=== PATIENT | male | born 1955 | race Caucasian/White ===

== ENCOUNTER 2018-06-25 12:08 | Inpatient (IN) | payer OTHER ==
[2018-06-25 12:32] LABS: ADD MAN DIFF? NO
[2018-06-25 12:34] LABS: WHITE BLOOD COUNT 7.3 10^3/ul (4.8-10.8)
[2018-06-25 12:34] LABS: BASOPHIL # 0.1 10^3/ul (0.0-0.1); BASOPHILS % 0.7 % (0.0-2.0); EOSINOPHILS # 0.2 10^3/ul (0.0-0.5); EOSINOPHILS % 2.1 % (0.0-7.0); HEMATOCRIT 38.8 % (42.0-52.0); HEMOGLOBIN 13.3 g/dl (14.0-18.0); LYMPHOCYTES # 3.1 10^3/ul (0.8-2.9); LYMPHOCYTES % 41.9 % (15.0-51.0); MEAN CORPUSCULAR HEMOGLOBIN 29.6 pg (29.0-33.0); MEAN CORPUSCULAR HGB CONC 34.3 g/dl (32.0-37.0); MEAN CORPUSCULAR VOLUME 86.4 fl (82.0-101.0); MEAN PLATELET VOLUME 10.7 fl (7.4-10.4); MONOCYTE # 0.3 10^3/ul (0.3-0.9); MONOCYTES % 4.7 % (0.0-11.0); NEUTROPHIL # 3.7 10^3/ul (1.6-7.5); NEUTROPHILS % 50.3 % (39.0-77.0); PLATELET COUNT 226 10^3/UL (140-415); RED BLOOD COUNT 4.49 10^6/ul (4.70-6.10); RED CELL DISTRIBUTION WIDTH 13.9 % (11.5-14.5)
[2018-06-25] MEDS: ASPIRIN 81 MG TAB PO (12:45)
[2018-06-25 12:50] LABS: ANION GAP 10 (8-16); BLOOD UREA NITROGEN 21 mg/dl (7-20); CALCIUM 8.8 mg/dl (8.4-10.2); CARBON DIOXIDE 29 mmol/L (21-31); CHLORIDE 105 mmol/L (97-110); CREATININE 0.93 mg/dl (0.61-1.24); GLUCOSE 99 mg/dl (70-220); POTASSIUM 3.5 mmol/L (3.5-5.1); SODIUM 140 mmol/L (135-144)
[2018-06-25 13:01] LABS: TROPONIN-I < 0.012 ng/ml (0.000-0.120)
[2018-06-25] MEDS ORDERED: ACETAMINOPHEN 325 MG TAB PO (14:30)
[2018-06-25] MEDS ORDERED: ONDANSETRON 4 MG INJ IV (14:30)
[2018-06-25] MEDS ORDERED: NITROGLYCERIN (SL) 0.4 MG TAB SL (15:00)
[2018-06-25] MEDS ORDERED: hydrALAzine 20 MG INJ IV (15:00)
[2018-06-25 19:19] LABS: CREATINE KINASE 46 IU/L (23-200)
[2018-06-25 19:30] LABS: CK INDEX 1.4; CK-MB 0.66 ng/ml (0.0-2.4); TROPONIN-I < 0.012 ng/ml (0.000-0.120)
[2018-06-25] MEDS: TAMSULOSIN (SR) 0.4 MG CAP PO (22:06)
[2018-06-25] MEDS: ATORVASTATIN 20 MG TAB PO (22:06)
[2018-06-25] MEDS: ISOSORBIDE DINITRATE 20 MG TAB PO (22:07)
[2018-06-26 00:55] LABS: CREATINE KINASE 44 IU/L (23-200)
[2018-06-26 01:08] LABS: CK INDEX 1.3; CK-MB 0.59 ng/ml (0.0-2.4); TROPONIN-I < 0.012 ng/ml (0.000-0.120)
[2018-06-26 06:37] LABS: CHOL/HDL RATIO 3.6 RATIO; HDL CHOLESTEROL 38 mg/dl (30-78); LDL CHOLESTEROL,CALCULATED 75 mg/dl; TRIGLYCERIDES 127 mg/dl (0-149)
[2018-06-26 06:37] LABS: CHOLESTEROL 138 mg/dl (100-200)
[2018-06-26 06:49] LABS: TROPONIN-I < 0.012 ng/ml (0.000-0.120)
[2018-06-26] MEDS: ASPIRIN 81 MG TAB PO (08:06)
[2018-06-26] MEDS: DUTASTERIDE 0.5 MG CAP PO (08:06)
[2018-06-26] MEDS: AMLODIPINE 5 MG TAB PO (08:08)
[2018-06-26] MEDS: LOSARTAN 50 MG TAB PO (08:09)
[2018-06-26] MEDS: ISOSORBIDE DINITRATE 20 MG TAB PO ×3 (08:09→20:46)
[2018-06-26] MEDS: FISH OIL 1,000 MG CAP PO (08:09)
[2018-06-26] MEDS: ENOXAPARIN 40 MG/0.4 ML SYG SC (09:57)
[2018-06-26] MEDS: POTASSIUM CHLORIDE (SR) 20 MEQ TAB PO (15:13)
[2018-06-26] MEDS: TAMSULOSIN (SR) 0.4 MG CAP PO (20:46)
[2018-06-26] MEDS: ATORVASTATIN 20 MG TAB PO (20:46)
[2018-06-27] MEDS: FISH OIL 1,000 MG CAP PO (08:43)
[2018-06-27] MEDS: ISOSORBIDE DINITRATE 20 MG TAB PO ×3 (08:44→20:25)
[2018-06-27] MEDS: LOSARTAN 50 MG TAB PO (08:44)
[2018-06-27] MEDS: AMLODIPINE 5 MG TAB PO (08:44)
[2018-06-27] MEDS: ASPIRIN 81 MG TAB PO (08:44)
[2018-06-27] MEDS: DUTASTERIDE 0.5 MG CAP PO (08:45)
[2018-06-27] MEDS: ENOXAPARIN 40 MG/0.4 ML SYG SC (09:59)
[2018-06-27] MEDS: TAMSULOSIN (SR) 0.4 MG CAP PO (20:23)
[2018-06-27] MEDS: ATORVASTATIN 20 MG TAB PO (20:23)
[2018-06-28] MEDS: ASPIRIN 81 MG TAB PO (08:53)
[2018-06-28] MEDS: FISH OIL 1,000 MG CAP PO (08:53)
[2018-06-28] MEDS: ISOSORBIDE DINITRATE 20 MG TAB PO ×2 (08:55→13:30)
[2018-06-28] MEDS: LOSARTAN 50 MG TAB PO (08:55)
[2018-06-28] MEDS: AMLODIPINE 5 MG TAB PO (08:56)
[2018-06-28] MEDS: DUTASTERIDE 0.5 MG CAP PO (08:57)
[2018-06-28] MEDS: ENOXAPARIN 40 MG/0.4 ML SYG SC (08:59)
== END 2018-06-28 13:44 | disposition home or self-care (01) | DRG 313 ==
LOC: E/R 12:08 → 6WM 14:27
DX: R07.9 Chest pain, unspecified (principal); E78.5 Hyperlipidemia, unspecified; I25.119 Atherosclerotic heart disease of native coronary artery with unspecified angina pectoris; I10 Essential (primary) hypertension; I49.3 Ventricular premature depolarization; N40.0 Benign prostatic hyperplasia without lower urinary tract symptoms; Z79.82 Long term (current) use of aspirin; Z87.891 Personal history of nicotine dependence; Z95.1 Presence of aortocoronary bypass graft
CPT/HCPCS: 36415; 71045; 80048; 80061; 82550; 82553; 84484; 85025; 93005; 93306; 99285-25

== ENCOUNTER 2018-09-03 07:16 | Day surgery (SDC) | payer OTHER ==
[2018-09-03 08:31] LABS: ADD MAN DIFF? NO
[2018-09-03 08:33] LABS: BASOPHIL # 0.1 10^3/ul (0.0-0.1); BASOPHILS % 0.7 % (0.0-2.0); EOSINOPHILS # 0.1 10^3/ul (0.0-0.5); EOSINOPHILS % 1.8 % (0.0-7.0); HEMOGLOBIN 13.8 g/dl (14.0-18.0); LYMPHOCYTES # 3.2 10^3/ul (0.8-2.9); LYMPHOCYTES % 46.9 % (15.0-51.0); MEAN CORPUSCULAR HEMOGLOBIN 29.5 pg (29.0-33.0); MEAN CORPUSCULAR HGB CONC 34.5 g/dl (32.0-37.0); MEAN CORPUSCULAR VOLUME 85.5 fl (82.0-101.0); MEAN PLATELET VOLUME 10.8 fl (7.4-10.4); MONOCYTE # 0.3 10^3/ul (0.3-0.9); MONOCYTES % 4.2 % (0.0-11.0); NEUTROPHIL # 3.2 10^3/ul (1.6-7.5); NEUTROPHILS % 46.1 % (39.0-77.0); PLATELET COUNT 236 10^3/UL (140-415); RED BLOOD COUNT 4.68 10^6/ul (4.70-6.10); RED CELL DISTRIBUTION WIDTH 13.3 % (11.5-14.5)
[2018-09-03 08:33] LABS: WHITE BLOOD COUNT 6.8 10^3/ul (4.8-10.8)
[2018-09-03 08:52] LABS: INR 1.09; PROTIME 14.2 Sec (11.9-14.9); PT RATIO 1.1
[2018-09-03 08:53] LABS: PARTIAL THROMBOPLASTIN TIME 32.9 Sec (23.0-35.0)
[2018-09-03 08:59] LABS: ANION GAP 10 (5-13); BLOOD UREA NITROGEN 18 mg/dl (7-20); CALCIUM 9.1 mg/dl (8.4-10.2); CARBON DIOXIDE 29 mmol/L (21-31); CHLORIDE 103 mmol/L (97-110); CHOL/HDL RATIO 3.6 RATIO; CHOLESTEROL 143 mg/dl (100-200); CREATININE 0.86 mg/dl (0.61-1.24); Estimated GFR > 60 mL/min (>60); GLUCOSE 101 mg/dl (70-220); HDL CHOLESTEROL 39 mg/dl (30-78); LDL CHOLESTEROL,CALCULATED 90 mg/dl; SODIUM 142 mmol/L (135-144); TRIGLYCERIDES 70 mg/dl (0-149)
[2018-09-03 09:04] LABS: POTASSIUM 3.2 mmol/L (3.5-5.1)
[2018-09-03] MEDS ORDERED: LIDOCAINE 2% (MDV) 20 ML INJ (09:15)
[2018-09-03] MEDS ORDERED: IODIXANOL LOCM 100 ML BTL ×4 (09:15→10:52)
[2018-09-03] MEDS ORDERED: FENTAnyl 50 MCG/ML VIAL (09:16)
[2018-09-03] MEDS ORDERED: MIDAZOLAM 1 MG/ML 2 ML INJ (09:16)
[2018-09-03] MEDS ORDERED: SOD CHLORIDE 0.9% 500 ML (10:17)
[2018-09-03] MEDS ORDERED: BIVALIRUDIN 250MG /NS 50 ML 50 ML IVPB (10:36)
[2018-09-03] MEDS ORDERED: NITROGLYCERIN (IC) 100 MCG/ML INJ (10:37)
[2018-09-03] MEDS ORDERED: IOHEXOL 350MG/ML 50 ML BTL (10:52)
[2018-09-03] MEDS ORDERED: TICAGRELOR 90 MG TABLET (11:08)
[2018-09-03] MEDS ORDERED: ASPIRIN 325 MG TAB (11:08)
[2018-09-03] MEDS ORDERED: DIPHENHYDRAMINE 50 MG INJ (11:26)
[2018-09-03] MEDS ORDERED: ONDANSETRON 4 MG INJ IV (11:30)
[2018-09-03] MEDS ORDERED: morphine 2 MG INJ IV (11:30)
[2018-09-03] MEDS ORDERED: AL HYDROX/MG HYDROX/SIMETH 30 ML CUP PO (11:30)
[2018-09-03] MEDS ORDERED: OXYCODONE/ACETAMINOPHEN (5/325) TAB PO (11:30)
[2018-09-03] MEDS ORDERED: ZOLPIDEM 5 MG TAB PO (11:30)
[2018-09-03] MEDS ORDERED: ACETAMINOPHEN 325 MG TAB PO (11:30)
[2018-09-03] MEDS: POTASSIUM CHLORIDE (SR) 20 MEQ TAB PO (12:00)
[2018-09-03] MEDS ORDERED: DIPHENHYDRAMINE 25 MG CAP PO (12:00)
[2018-09-03] MEDS: SOD CHLORIDE 0.9% 1,000 ML IV (12:09)
[2018-09-03] MEDS: TICAGRELOR 90 MG TABLET PO (21:47)
[2018-09-04 07:08] LABS: ADD MAN DIFF? NO
[2018-09-04 07:20] LABS: WHITE BLOOD COUNT 11.4 10^3/ul (4.8-10.8)
[2018-09-04 07:21] LABS: BASOPHILS % 0.3 % (0.0-2.0); EOSINOPHILS # 0.1 10^3/ul (0.0-0.5); EOSINOPHILS % 1.2 % (0.0-7.0); HEMATOCRIT 37.4 % (42.0-52.0); HEMOGLOBIN 12.9 g/dl (14.0-18.0); LYMPHOCYTES # 3.4 10^3/ul (0.8-2.9); MEAN CORPUSCULAR HEMOGLOBIN 29.7 pg (29.0-33.0); MEAN CORPUSCULAR HGB CONC 34.5 g/dl (32.0-37.0); MEAN CORPUSCULAR VOLUME 86.2 fl (82.0-101.0); MEAN PLATELET VOLUME 10.9 fl (7.4-10.4); MONOCYTE # 0.4 10^3/ul (0.3-0.9); MONOCYTES % 3.5 % (0.0-11.0); NEUTROPHIL # 7.4 10^3/ul (1.6-7.5); NEUTROPHILS % 64.6 % (39.0-77.0); PLATELET COUNT 215 10^3/UL (140-415); RED BLOOD COUNT 4.34 10^6/ul (4.70-6.10); RED CELL DISTRIBUTION WIDTH 13.3 % (11.5-14.5)
[2018-09-04 07:44] LABS: ANION GAP 8 (5-13); BLOOD UREA NITROGEN 19 mg/dl (7-20); CARBON DIOXIDE 29 mmol/L (21-31); CHLORIDE 103 mmol/L (97-110); CREATINE KINASE 69 IU/L (23-200); Estimated GFR > 60 mL/min (>60); GLUCOSE 137 mg/dl (70-220); POTASSIUM 3.1 mmol/L (3.5-5.1); SODIUM 140 mmol/L (135-144)
[2018-09-04 07:46] LABS: CK INDEX 2.3; CK-MB 1.58 ng/ml (0.0-2.4)
[2018-09-04 07:49] LABS: TROPONIN-I 0.168 ng/ml (0.000-0.120)
[2018-09-04] MEDS: ASPIRIN 81 MG TAB PO (08:28)
[2018-09-04] MEDS: AMLODIPINE 5 MG TAB PO (08:29)
[2018-09-04] MEDS: ASPIRIN (EC) 81 MG TAB PO (08:29)
[2018-09-04] MEDS: TICAGRELOR 90 MG TABLET PO (08:31)
[2018-09-04] MEDS: DUTASTERIDE 0.5 MG CAP PO (10:18)
[2018-09-04] MEDS ORDERED: ATORVASTATIN 20 MG TAB PO (21:00)
[2018-09-04] MEDS ORDERED: ATORVASTATIN 80 MG TAB PO (21:00)
[2018-09-05] MEDS ORDERED: AMLODIPINE 10 MG TAB PO (09:00)
== END 2018-09-04 16:50 | disposition home or self-care (01) ==
LOC: SDS 07:16 → TEL 09-04 02:18 → ICU 11:57 → SDS 09-04 16:50
DX: I25.10 Atherosclerotic heart disease of native coronary artery without angina pectoris (principal); I10 Essential (primary) hypertension; E78.5 Hyperlipidemia, unspecified; N40.0 Benign prostatic hyperplasia without lower urinary tract symptoms
CPT/HCPCS: 71045; 80048; 80061; 82550; 82553; 84484; 85025; 85610; 85730; 87081; 93005; 93459